=== PATIENT | male | born 1940 | race Caucasian/White ===

== ENCOUNTER 2024-02-10 23:11 | Inpatient (IN) | payer OTHER ==
[~2024-02-10] VITALS: Ht 162.6 cm; Wt 98.4 kg
[2024-02-11 00:26] LABS: Hemoglobin 10.6 g/dL (13.5-17.5); Mean Corpuscular Hemoglobin 29.1 pg (28.0-32.0); Red Blood Cells 3.63 10^6/uL (4.5-5.90); White Blood Cell 7.9 10^3/uL (4.4-10.8)
[2024-02-11 00:27] LABS: Alanine Aminotransferase 17 U/L (7-40); Albumin 4.3 g/dL (3.2-4.8); Alkaline Phosphatase 71 U/L (46-116); Anion Gap 12 (5-15); Aspartate Aminotransferase 26 U/L (13-40); Bilirubin, Total 0.6 mg/dL (0.2-1.0); Blood Urea Nitrogen 33 mg/dL (9-23); Calcium 10.4 mg/dL (8.7-10.4); Carbon Dioxide 22 mmol/L (20-30); Chloride 104 mmol/L (98-107); Glucose 230 mg/dL (74-106); Lipase 48 U/L (12-53); Potassium 4.6 mmol/L (3.5-5.1); Sodium 138 mmol/L (136-145); Total Protein 6.6 g/dL (5.7-8.2)
[2024-02-11 00:29] LABS: BUN/Creatinine Ratio 15.3 (10.0-20.0); Band Neutrophils % (manual) 0; Basophils % (manual) 0 (0.0-2.0); Blast Cells 0; Eosinophils % (manual) 0 (0-7); Metamyelocytes % 0; Myelocytes % 0; Promyelocytes % 0; Reactive Lymphocytes 0
[2024-02-11 00:30] VITALS: PULSE 71; RESP 18; O2SAT 100
[2024-02-11 00:55] LABS: Lymphocytes % (manual) 4 (10.0-50.0); Monocytes % (manual) 1 (0-12); Platelet Estimate Adequate
[2024-02-11] MEDS: LIDOCAINE HCL 100 MG/5ML (2%) SYRG INJ IV ONE (03:42)
[2024-02-11] MEDS: MIDAZOLAM HCL 2MG/2ML 2ml VIAL (1mg/ml) IV ONE (03:42)
[2024-02-11] MEDS ORDERED: DEXTROSE (50%) 50ML SYRG IV PRN (05:30)
[2024-02-11] MEDS ORDERED: NITROGLYCERIN 0.4 MG SL TAB SL PRN (05:30)
[2024-02-11] MEDS ORDERED: ACETAMINOPHEN 325 MG TAB PO PRN (05:30)
[2024-02-11] MEDS ORDERED: MORPHINE SULFATE INJ 2 MG/ml SYRG IV PRN (05:30)
[2024-02-11] MEDS: ACCU-CHEK COMFORT CURVE STRIP VI SCH (06:00)
[2024-02-11] MEDS: InsuLIN REG 1unit/0.01ml Soln (100units/ml) SC SCH (06:00)
[2024-02-11] MEDS: SODIUM CHLORIDE 0.9% 1,000 ML IV SCH (06:31)
[2024-02-11] MEDS: MORPHINE SULFATE INJ 2 MG/ml SYRG IV PRN (08:09)
[2024-02-11] MEDS: ONDANSETRON HCL 4 MG/2 ML VIAL IV PRN (08:09)
[2024-02-11] MEDS: HEPARIN SODIUM (PORCINE) 5000 UNITS/ML 1ML VIAL SC SCH (08:11)
[2024-02-11 08:45] VITALS: PULSE 84; RESP 14; O2SAT 94
[2024-02-11 10:30] VITALS: BP 129/50; PULSE 90; RESP 16; TEMP 97.7; O2SAT 94
[2024-02-11 11:05] LABS: Magnesium 1.8 mg/dL (1.6-2.6)
[2024-02-11 11:06] LABS: Phosphorus 1.8 mg/dL (2.4-5.1)
[2024-02-11 17:00] VITALS: BP 125/53; PULSE 92; RESP 17; TEMP 98.6; O2SAT 91
[2024-02-11] MEDS: GASTROGRAFIN 120 ML SOL ONE (18:43)
[2024-02-11] MEDS: LIDOCAINE 2% JELLY 11ml (GLYDO) UR ONE ×3 (18:44)
[2024-02-11 19:10] LABS: Urine Bacteria NONE SEEN /hpf (None Seen); Urine Blood 1+ /uL (Negative); Urine Clarity Clear (Clear); Urine Color Yellow (Yellow); Urine Hyaline Cast MANY /lpf (0 - 2); Urine Mucus FEW (None Seen); Urine Protein, UAD 1+ (Negative); Urine Specific Gravity 1.024 (1.001-1.035); Urine WBC 1 /hpf (0 - 3); Urine pH 5.5 (5.0-8.0)
[2024-02-11 19:21] LABS: Protein, Urine 103.3 mg/dL (0.0-11.9)
[2024-02-11 19:33] LABS: Creatinine, Urine 242.33 mg/dL (30.0-125.0); Urine Protein/Creatinine Ratio 0.43
[2024-02-11 20:00] VITALS: PULSE 84; RESP 20; O2SAT 97
[2024-02-11 21:00] VITALS: BP 146/52; PULSE 84; RESP 18; TEMP 97.2; O2SAT 91
[2024-02-12] VITALS (8 sets, daily range): BP systolic 106–156; BP diastolic 48–92; PULSE 81–106; RESP 16–18; TEMP 91.3–98.6; O2SAT 90–97
[2024-02-12 06:18] LABS: Chloride 104 mmol/L (98-107); Sodium 143 mmol/L (136-145)
[2024-02-12 06:19] LABS: Anion Gap 8 (5-15); Carbon Dioxide 31 mmol/L (20-30)
[2024-02-12 06:24] LABS: Glucose 267 mg/dL (74-106); Hematocrit 31.4 % (41.0-53.0); Hemoglobin 10.1 g/dL (13.5-17.5); Mean Corpuscular Hgb Conc. 32.3 g/dL (32.0-36.0); Mean Corpuscular Volume 89.9 fL (80.0-100.0); Red Blood Cells 3.49 10^6/uL (4.5-5.90); Red Cell Distribution Width 14.2 % (11.8-14.3); White Blood Cell 16.4 10^3/uL (4.4-10.8)
[2024-02-12 06:25] LABS: BUN/Creatinine Ratio 18.7 (10.0-20.0)
[2024-02-12 06:42] LABS: Blood Urea Nitrogen 50 mg/dL (9-23)
[2024-02-12 06:50] LABS: Basophils % (manual) 0 (0.0-2.0); Blast Cells 0; Eosinophils % (manual) 0 (0-7); Metamyelocytes % 0; Myelocytes % 0; Promyelocytes % 0; Reactive Lymphocytes 0
[2024-02-12 08:18] LABS: Lymphocytes % (manual) 6 (10.0-50.0); Monocytes % (manual) 3 (0-12)
[2024-02-12 08:19] LABS: Band Neutrophils % (manual) 19
[2024-02-12 08:20] LABS: Platelet Estimate Adequate; RBC Morphology Normal
[2024-02-13] VITALS (9 sets, daily range): BP systolic 127–166; BP diastolic 64–76; PULSE 70–97; RESP 16–20; TEMP 98.2–98.9; O2SAT 91–98
[2024-02-13 06:57] LABS: Chloride 109 mmol/L (98-107); Potassium 3.4 mmol/L (3.5-5.1); Sodium 145 mmol/L (136-145)
[2024-02-13 06:58] LABS: Anion Gap 7 (5-15); Basophils # (auto) 0 10 ^3/uL (0-0.2); Basophils % (auto) 0.1 % (0.0-2.0); Calcium 9.3 mg/dL (8.7-10.4); Carbon Dioxide 29 mmol/L (20-30); Eosinophils # (auto) 0 10 ^3/uL (0-0.8); Hematocrit 30.9 % (41.0-53.0); Hemoglobin 10.2 g/dL (13.5-17.5); Lymphocytes # (auto) 0.7 10 ^3/uL (0.4-5.4); Mean Corpuscular Hemoglobin 29.9 pg (28.0-32.0); Mean Corpuscular Hgb Conc. 33.1 g/dL (32.0-36.0); Mean Corpuscular Volume 90.3 fL (80.0-100.0); Monocytes # (auto) 0.3 10 ^3/uL (0-1.3); Monocytes % (auto) 2.9 % (0.0-12.0); Neutrophils # (auto) 10.7 10 ^3/uL (1.6-8.6); Red Blood Cells 3.42 10^6/uL (4.5-5.90); Red Cell Distribution Width 14.1 % (11.8-14.3); White Blood Cell 11.8 10^3/uL (4.4-10.8)
[2024-02-13 07:03] LABS: BUN/Creatinine Ratio 22.3 (10.0-20.0); Glucose 197 mg/dL (74-106)
[2024-02-13 07:09] LABS: Blood Urea Nitrogen 37 mg/dL (9-23)
[2024-02-13] MEDS: SOD CHL 0.45% WITH 20MEQ KCL 1,000 ML IV SCH (19:42)
[2024-02-14] VITALS (7 sets, daily range): BP systolic 111–168; BP diastolic 46–65; PULSE 64–87; RESP 18–21; TEMP 97.9–98.2; O2SAT 94–98
[2024-02-14 06:10] LABS: Basophils # (auto) 0.1 10 ^3/uL (0-0.2); Basophils % (auto) 0.7 % (0.0-2.0); Eosinophils # (auto) 0 10 ^3/uL (0-0.8); Eosinophils % (auto) 0.1 % (0.0-7.0); Hematocrit 29.9 % (41.0-53.0); Hemoglobin 9.9 g/dL (13.5-17.5); Lymphocytes % (auto) 8.7 % (10.0-50.0); Mean Corpuscular Hemoglobin 29.7 pg (28.0-32.0); Mean Corpuscular Hgb Conc. 33.1 g/dL (32.0-36.0); Mean Corpuscular Volume 89.8 fL (80.0-100.0); Monocytes # (auto) 0.5 10 ^3/uL (0-1.3); Monocytes % (auto) 4.6 % (0.0-12.0); Neutrophils # (auto) 10.1 10 ^3/uL (1.6-8.6); Neutrophils % (auto) 85.9 % (37.0-80.0); Red Blood Cells 3.33 10^6/uL (4.5-5.90); Red Cell Distribution Width 14.1 % (11.8-14.3); White Blood Cell 11.7 10^3/uL (4.4-10.8)
[2024-02-14 06:14] LABS: Anion Gap 8 (5-15); Carbon Dioxide 27 mmol/L (20-30); Chloride 105 mmol/L (98-107); Potassium 3.4 mmol/L (3.5-5.1); Sodium 140 mmol/L (136-145)
[2024-02-14 06:15] LABS: Calcium 8.7 mg/dL (8.5-10.1)
[2024-02-14 06:20] LABS: BUN/Creatinine Ratio 22.4 (10.0-20.0); Blood Urea Nitrogen 28 mg/dL (9-23); Glucose 174 mg/dL (74-106)
== END 2024-02-14 17:55 | disposition home or self-care (01) | DRG 388 ==
LOC: ER 23:11 → EDBD 23:11 → EDUNIT# 23:11 → TELE 02-11 05:39 → TELE-CENTR 02-11 09:52
PROVIDERS: ADMIT Nurse Practitioner Family; ATTEND Nurse Practitioner Family
PROC: 0T9B70Z Drainage of Bladder with Drainage Device, Via Natural or Artificial Opening (ICD-10-PCS; principal; 2024-02-11)
PROC: 0D9670Z Drainage of Stomach with Drainage Device, Via Natural or Artificial Opening (ICD-10-PCS; 2024-02-11)
DX: K56.600 Partial intestinal obstruction, unspecified as to cause (principal); N17.0 Acute kidney failure with tubular necrosis; I10 Essential (primary) hypertension; I49.3 Ventricular premature depolarization; E86.0 Dehydration; E11.65 Type 2 diabetes mellitus with hyperglycemia; D64.9 Anemia, unspecified; R55 Syncope and collapse; Z87.19 Personal history of other diseases of the digestive system
CPT/HCPCS: 36415; 71045; 74018; 74176; 74250; 80048; 80053; 81001; 82306; 82570; 82962; 83605; 83690; 83735; 83880; 83970; 84100; 84156; 84300; 84484; 85007; 85025; 85027; 93005; 93306; 96374; 96375; 97110; 97163; 97530; 99291; G0378; J1815; J2250; J2405

== ENCOUNTER 2024-02-27 02:19 | Inpatient (IN) | payer OTHER ==
[~2024-02-27] VITALS: Ht 175.3 cm; Wt 78.6 kg
[2024-02-27] MEDS: ONDANSETRON HCL 4 MG/2 ML VIAL IV ONE (03:09)
[2024-02-27] MEDS: SODIUM CHLORIDE 0.9% 500 ML IV ONE (03:10)
[2024-02-27 03:41] LABS: Chloride 99 mmol/L (98-107); Hematocrit 33.8 % (41.0-53.0); Hemoglobin 10.7 g/dL (13.5-17.5); Mean Corpuscular Hemoglobin 28.9 pg (28.0-32.0); Mean Corpuscular Hgb Conc. 31.6 g/dL (32.0-36.0); Mean Corpuscular Volume 91.6 fL (80.0-100.0); Potassium 4.2 mmol/L (3.5-5.1); Red Blood Cells 3.69 10^6/uL (4.5-5.90); Red Cell Distribution Width 14.6 % (11.8-14.3); Sodium 137 mmol/L (136-145); White Blood Cell 26.6 10^3/uL (4.4-10.8)
[2024-02-27 03:42] LABS: Anion Gap 16 (5-15); Calcium 11.2 mg/dL (8.7-10.4); Carbon Dioxide 22 mmol/L (20-30)
[2024-02-27 03:47] LABS: BUN/Creatinine Ratio 8.9 (10.0-20.0); Blood Urea Nitrogen 19 mg/dL (9-23); Glucose 251 mg/dL (74-106)
[2024-02-27 04:01] LABS: Basophils % (manual) 0 (0.0-2.0); Blast Cells 0; Eosinophils % (manual) 0 (0-7); Metamyelocytes % 0; Myelocytes % 0; Promyelocytes % 0; Reactive Lymphocytes 0
[2024-02-27] MEDS: MIDAZOLAM HCL 2MG/2ML 2ml VIAL (1mg/ml) IV ONE (04:13)
[2024-02-27 04:32] LABS: Band Neutrophils % (manual) 11; Lymphocytes % (manual) 9 (10.0-50.0); Monocytes % (manual) 2 (0-12); Platelet Estimate Increased
[2024-02-27 04:33] LABS: Large Platelets FEW
[2024-02-27 04:50] VITALS: PULSE 93; RESP 20; O2SAT 98
[2024-02-27] MEDS ORDERED: ACETAMINOPHEN 325 MG TAB PO PRN (06:45)
[2024-02-27] MEDS ORDERED: MORPHINE SULFATE INJ 2 MG/ml SYRG IV PRN ×2 (06:45)
[2024-02-27] MEDS ORDERED: DOCUSATE SOD 100 MG CAP PO PRN (06:45)
[2024-02-27] MEDS ORDERED: NITROGLYCERIN 0.4 MG SL TAB SL PRN (06:45)
[2024-02-27] MEDS ORDERED: VANCOMYCIN PER PHARMACY 0 MG IV SCH (06:45)
[2024-02-27] MEDS: PIPERACILLIN-TAZOB 3.375GM 100 ML IV SCH (07:10)
[2024-02-27] MEDS: SODIUM CHLORIDE 0.9% 1,000 ML IV SCH (07:10)
[2024-02-27] MEDS: ACETAMINOPHEN 650 mg PER 20.3 mL UD GT PRN (07:46)
[2024-02-27] MEDS: VANCOMYCIN 1GM/200ML 200 ML IV ONE ×2 (07:46→09:56)
[2024-02-27 08:33] VITALS: PULSE 82; RESP 14; O2SAT 92
[2024-02-27] MEDS: MIDAZOLAM HCL 2MG/2ML 2ml VIAL (1mg/ml) ONE (09:55)
[2024-02-27] MEDS: ONDANSETRON HCL 4 MG/2 ML VIAL ONE (09:55)
[2024-02-27] MEDS: PIPERACILLIN-TAZOB 3.375GM 100 ML IV ONE (09:56)
[2024-02-27] MEDS: ACETAMINOPHEN 650 mg PER 20.3 mL UD ONE (09:56)
[2024-02-27 11:44] LABS: Chloride 101 mmol/L (98-107); Potassium 5.5 mmol/L (3.5-5.1); Sodium 139 mmol/L (136-145)
[2024-02-27 11:45] LABS: Anion Gap 4 (5-15); Calcium 9.7 mg/dL (8.5-10.1)
[2024-02-27 11:50] LABS: BUN/Creatinine Ratio 11.3 (10.0-20.0); Glucose 161 mg/dL (74-106)
[2024-02-27 11:51] LABS: Blood Urea Nitrogen 29 mg/dL (9-23); Carbon Dioxide 34 mmol/L (20-30)
[2024-02-27] MEDS: InsuLIN REG 1unit/0.01ml Soln (100units/ml) SC SCH (12:08)
[2024-02-27] MEDS: ACCU-CHEK COMFORT CURVE STRIP VI SCH (12:21)
[2024-02-27] MEDS: DEXTROSE (50%) 50ML SYRG IV ONE (13:31)
[2024-02-27] MEDS: InsuLIN REG 1unit/0.01ml Soln (100units/ml) IV ONE (13:44)
[2024-02-27] MEDS ORDERED: PIPERACILLIN-TAZOB 3.375GM 100 ML IV SCH ×2 (14:00)
[2024-02-27] MEDS: GASTROGRAFIN 120 ML SOL ONE (14:07)
[2024-02-27] MEDS: DEXTROSE (50%) 50ML SYRG IV PRN (15:54)
[2024-02-27] MEDS: ONDANSETRON HCL 4 MG/2 ML VIAL IV PRN (17:23)
[2024-02-27] MEDS: D5W/SOD CHL 0.45% 1,000 ML IV SCH (17:24)
[2024-02-27 20:00] VITALS: PULSE 72; PULSE 82; RESP 17; O2SAT 98
[2024-02-27 22:00] VITALS: BP 124/46; PULSE 75; RESP 17; TEMP 98.3; O2SAT 100
[2024-02-28 05:00] VITALS: BP 128/44; PULSE 67; RESP 17; TEMP 98.1; O2SAT 100
[2024-02-28 06:56] LABS: Basophils # (auto) 0.1 10 ^3/uL (0-0.2); Basophils % (auto) 0.6 % (0.0-2.0); Eosinophils # (auto) 0.1 10 ^3/uL (0-0.8); Eosinophils % (auto) 0.8 % (0.0-7.0); Hematocrit 25.9 % (41.0-53.0); Hemoglobin 8.5 g/dL (13.5-17.5); Lymphocytes # (auto) 0.9 10 ^3/uL (0.4-5.4); Lymphocytes % (auto) 9.1 % (10.0-50.0); Mean Corpuscular Hemoglobin 29.5 pg (28.0-32.0); Mean Corpuscular Hgb Conc. 32.9 g/dL (32.0-36.0); Mean Corpuscular Volume 89.7 fL (80.0-100.0); Monocytes # (auto) 0.6 10 ^3/uL (0-1.3); Monocytes % (auto) 5.6 % (0.0-12.0); Neutrophils # (auto) 8.6 10 ^3/uL (1.6-8.6); Neutrophils % (auto) 83.9 % (37.0-80.0); Red Blood Cells 2.89 10^6/uL (4.5-5.90); Red Cell Distribution Width 14.2 % (11.8-14.3); White Blood Cell 10.3 10^3/uL (4.4-10.8)
[2024-02-28] MEDS ORDERED: VANCOMYCIN 1GM/200ML 200 ML IV SCH (07:00)
[2024-02-28 07:07] LABS: Anion Gap 5 (5-15); Carbon Dioxide 34 mmol/L (20-30); Chloride 102 mmol/L (98-107); Potassium 3.9 mmol/L (3.5-5.1); Sodium 141 mmol/L (136-145)
[2024-02-28 07:09] LABS: Calcium 8.9 mg/dL (8.5-10.1)
[2024-02-28 07:13] LABS: Glucose 224 mg/dL (74-106)
[2024-02-28 07:14] LABS: BUN/Creatinine Ratio 12.8 (10.0-20.0); Blood Urea Nitrogen 29 mg/dL (9-23)
[2024-02-28 08:00] VITALS: BP 122/45; PULSE 65; PULSE 73; RESP 17; TEMP 98.3; O2SAT 100
[2024-02-28] MEDS: GASTROGRAFIN 120 ML SOL ONE (08:56)
[2024-02-28 09:00] VITALS: BP 122/45; PULSE 73; RESP 17; TEMP 98.3; O2SAT 100
[2024-02-28] MEDS ORDERED: FERR325T24 PO (12:55)
[2024-02-28] MEDS ORDERED: AML5T PO (12:55)
[2024-02-28] MEDS ORDERED: ATOR20TA PO (12:55)
[2024-02-28] MEDS ORDERED: HYDR25TA4 PO (12:55)
[2024-02-28 13:04] VITALS: BP 119/68; PULSE 62; RESP 15; TEMP 98.2; O2SAT 100
[2024-02-28] MEDS: TAMSULOSIN HYDROCHLORIDE 0.4 MG CAP PO SCH (17:21)
[2024-02-28 20:00] VITALS: PULSE 97; RESP 16
[2024-02-28 21:00] VITALS: BP 123/50; PULSE 94; RESP 18; TEMP 98.1; O2SAT 95
[2024-02-28] MEDS: cefTRIAXone 2GM/50ML D5W 50 ML IV SCH (21:29)
[2024-02-28] MEDS: metroNIDAZOLE 500MG/100ML 100 ML IV SCH (21:30)
[2024-02-29] VITALS (8 sets, daily range): BP systolic 114–143; BP diastolic 40–74; PULSE 47–92; RESP 16–18; TEMP 97.7–98.7; O2SAT 92–100
[2024-02-29 07:05] LABS: Basophils # (auto) 0.1 10 ^3/uL (0-0.2); Basophils % (auto) 0.9 % (0.0-2.0); Chloride 103 mmol/L (98-107); Eosinophils # (auto) 0.2 10 ^3/uL (0-0.8); Eosinophils % (auto) 1.8 % (0.0-7.0); Hematocrit 26.9 % (41.0-53.0); Hemoglobin 8.7 g/dL (13.5-17.5); Lymphocytes # (auto) 0.7 10 ^3/uL (0.4-5.4); Lymphocytes % (auto) 6.4 % (10.0-50.0); Mean Corpuscular Hgb Conc. 32.3 g/dL (32.0-36.0); Monocytes # (auto) 0.6 10 ^3/uL (0-1.3); Monocytes % (auto) 5.7 % (0.0-12.0); Neutrophils # (auto) 9.7 10 ^3/uL (1.6-8.6); Neutrophils % (auto) 85.2 % (37.0-80.0); Potassium 3.1 mmol/L (3.5-5.1); Red Blood Cells 2.98 10^6/uL (4.5-5.90); Red Cell Distribution Width 14.3 % (11.8-14.3); Sodium 140 mmol/L (136-145); White Blood Cell 11.4 10^3/uL (4.4-10.8)
[2024-02-29 07:06] LABS: Anion Gap 9 (5-15); Calcium 8.8 mg/dL (8.5-10.1); Carbon Dioxide 28 mmol/L (20-30)
[2024-02-29 07:11] LABS: Blood Urea Nitrogen 22 mg/dL (9-23); Glucose 105 mg/dL (74-106)
[2024-02-29 11:32] LABS: Urine Bacteria None Seen /hpf (None Seen)
[2024-02-29 12:01] LABS: Urine Blood Negative /uL (Negative); Urine Clarity Clear (Clear); Urine Color Yellow (Yellow); Urine Protein, UAD 1+ (Negative); Urine Specific Gravity 1.024 (1.001-1.035); Urine Urobilinogen Normal (Negative); Urine WBC 1 /hpf (0 - 3); Urine pH 6.5 (5.0-9.0)
[2024-02-29] MEDS: POTASSIUM CHLORIDE 20 MEQ, LIDOCAINE 1% (LOCAL ANESTH.) 2 ML in SODIUM CHL 0.9% 100 ML IV ONE (14:18)
[2024-03-01 01:00] VITALS: BP 137/67; PULSE 83; RESP 16; TEMP 97.7; O2SAT 97
[2024-03-01 05:00] VITALS: BP 143/63; PULSE 80; RESP 17; TEMP 98.1; O2SAT 97
[2024-03-01 06:05] LABS: Basophils # (auto) 0.1 10 ^3/uL (0-0.2); Basophils % (auto) 0.8 % (0.0-2.0); Eosinophils # (auto) 0.2 10 ^3/uL (0-0.8); Hematocrit 26.1 % (41.0-53.0); Hemoglobin 8.5 g/dL (13.5-17.5); Lymphocytes # (auto) 0.8 10 ^3/uL (0.4-5.4); Lymphocytes % (auto) 11.7 % (10.0-50.0); Mean Corpuscular Hemoglobin 29.3 pg (28.0-32.0); Mean Corpuscular Hgb Conc. 32.6 g/dL (32.0-36.0); Mean Corpuscular Volume 89.8 fL (80.0-100.0); Monocytes # (auto) 0.6 10 ^3/uL (0-1.3); Monocytes % (auto) 8.2 % (0.0-12.0); Neutrophils # (auto) 5.5 10 ^3/uL (1.6-8.6); Neutrophils % (auto) 76.3 % (37.0-80.0); Red Blood Cells 2.91 10^6/uL (4.5-5.90); Red Cell Distribution Width 14.3 % (11.8-14.3); White Blood Cell 7.2 10^3/uL (4.4-10.8)
[2024-03-01 06:16] LABS: Anion Gap 7 (5-15); Carbon Dioxide 26 mmol/L (20-30); Chloride 103 mmol/L (98-107); Potassium 4.1 mmol/L (3.5-5.1); Sodium 136 mmol/L (136-145)
[2024-03-01 06:17] LABS: Calcium 8.4 mg/dL (8.5-10.1)
[2024-03-01 06:22] LABS: BUN/Creatinine Ratio 10.3 (10.0-20.0); Blood Urea Nitrogen 12 mg/dL (9-23); Glucose 95 mg/dL (74-106)
[2024-03-01 07:30] VITALS: PULSE 82
[2024-03-01 09:00] VITALS: BP 153/63; PULSE 84; RESP 20; TEMP 97.6; O2SAT 97
[2024-03-01] MEDS ORDERED: RAMI2.5C33 PO (12:22)
[2024-03-01] MEDS ORDERED: LACT10SO3 PO (12:25)
[2024-03-01 13:00] VITALS: BP 141/69; PULSE 94; RESP 18; TEMP 97.6; O2SAT 95
== END 2024-03-01 14:15 | disposition home or self-care (01) | DRG 388 ==
LOC: ER 02:19 → EDBD 02:19 → TELE 06:38 → TELE-WESTW 18:18
PROVIDERS: ADMIT Nurse Practitioner Family; ATTEND Nurse Practitioner Family
PROC: 0D9670Z Drainage of Stomach with Drainage Device, Via Natural or Artificial Opening (ICD-10-PCS; principal; 2024-02-27)
DX: K56.600 Partial intestinal obstruction, unspecified as to cause (principal); N17.0 Acute kidney failure with tubular necrosis; E87.5 Hyperkalemia; I12.9 Hypertensive chronic kidney disease with stage 1 through stage 4 chronic kidney disease, or unspecified chronic kidney disease; E11.22 Type 2 diabetes mellitus with diabetic chronic kidney disease; E78.5 Hyperlipidemia, unspecified; N18.9 Chronic kidney disease, unspecified; E86.1 Hypovolemia; D72.829 Elevated white blood cell count, unspecified; E86.0 Dehydration; R33.9 Retention of urine, unspecified; Z80.8 Family history of malignant neoplasm of other organs or systems; Z87.19 Personal history of other diseases of the digestive system
CPT/HCPCS: 36415; 70450; 71045; 74018; 74176; 74250; 76856; 80048; 81001; 82962; 83605; 83880; 84484; 85007; 85025; 85027; 87040; 87081; 93005; 97110; 97116; 97163; 97530; 99291; G0378; J1815; J2001; J2250; J2405; J2543; J3490

== ENCOUNTER 2024-05-21 16:58 | Emergency (ER) | payer OTHER ==
[~2024-05-21] VITALS: Ht 180.3 cm; Wt 58.3 kg
[~2024-05-21 16:58] MED LIST: AML5T PO; ATOR20TA PO; LACT10SO3 PO; RAMI2.5C33 PO
[2024-05-21 18:10] LABS: Basophils # (auto) 0.1 10 ^3/uL (0-0.2); Basophils % (auto) 0.8 % (0.0-2.0); Eosinophils # (auto) 0.3 10 ^3/uL (0-0.8); Eosinophils % (auto) 2.8 % (0.0-7.0); Hematocrit 29.3 % (41.0-53.0); Hemoglobin 9.6 g/dL (13.5-17.5); Lymphocytes # (auto) 2.1 10 ^3/uL (0.4-5.4); Lymphocytes % (auto) 21.9 % (10.0-50.0); Mean Corpuscular Hemoglobin 29.3 pg (28.0-32.0); Mean Corpuscular Hgb Conc. 32.8 g/dL (32.0-36.0); Mean Corpuscular Volume 89.2 fL (80.0-100.0); Monocytes # (auto) 0.6 10 ^3/uL (0-1.3); Monocytes % (auto) 6.4 % (0.0-12.0); Neutrophils # (auto) 6.5 10 ^3/uL (1.6-8.6); Neutrophils % (auto) 68.1 % (37.0-80.0); Nucleated Red Blood Cells % 0.1 %; Red Blood Cells 3.29 10^6/uL (4.5-5.90); Red Cell Distribution Width 15.3 % (11.8-14.3); White Blood Cell 9.5 10^3/uL (4.4-10.8)
[2024-05-21 18:26] LABS: Alanine Aminotransferase 12 U/L (7-40); Albumin 4.4 g/dL (3.2-4.8); Alkaline Phosphatase 66 U/L (46-116); Anion Gap 6 (5-15); Aspartate Aminotransferase 10 U/L (13-40); BUN/Creatinine Ratio 33.3 (10.0-20.0); Blood Urea Nitrogen 61 mg/dL (9-23); Calcium 10.5 mg/dL (8.7-10.4); Carbon Dioxide 24 mmol/L (20-30); Chloride 108 mmol/L (98-107); Glucose 146 mg/dL (74-106); Potassium 4.8 mmol/L (3.5-5.1); Sodium 138 mmol/L (136-145)
[2024-05-21 18:27] LABS: Bilirubin, Total 0.3 mg/dL (0.2-1.0); Total Protein 7.2 g/dL (5.7-8.2)
[2024-05-21] MEDS: SODIUM CHLORIDE 0.9% 1,000 ML IV ONE (21:25)
[2024-05-21 22:25] VITALS: BP 169/98; PULSE 90; RESP 16; TEMP 98.1; O2SAT 97
== END 2024-05-21 22:24 | disposition home or self-care (01) ==
LOC: ER 16:58
DX: R82.998 Other abnormal findings in urine (principal); D64.9 Anemia, unspecified; I10 Essential (primary) hypertension; I12.9 Hypertensive chronic kidney disease with stage 1 through stage 4 chronic kidney disease, or unspecified chronic kidney disease; E11.22 Type 2 diabetes mellitus with diabetic chronic kidney disease; N18.9 Chronic kidney disease, unspecified; E78.5 Hyperlipidemia, unspecified; Z79.891 Long term (current) use of opiate analgesic; Z79.899 Other long term (current) drug therapy; Z98.890 Other specified postprocedural states; Z88.8 Allergy status to other drugs, medicaments and biological substances
CPT/HCPCS: 36415; 80053; 85025; 96360; 99283; J7030